=== PATIENT | female | born 1960 | race Caucasian/White ===

== ENCOUNTER 2021-02-25 09:53 | Emergency (ER) | payer BC, SELFPAY ==
--- NOTE | ~2021-02-25 | XR_ITS ---
EXAMINATION: XR RIBS, BILATERAL CLINICAL INFORMATION: Chest/rib pain. COMPARISON: None. TECHNIQUE: 3 views of the bilateral ribs were obtained. FINDINGS: Lungs are clear. No consolidation, pneumothorax, or pleural effusion. The cardiomediastinal silhouette and pulmonary vasculature are normal. Osseous structures are unremarkable. Ribs are intact. No fractures are identified. XR/XR ribs BI min 4V w CXR1V IMPRESSION: No acute cardiopulmonary findings. No evidence of acutely displaced rib fractures.
--- NOTE | ~2021-02-25 | XR_ITS ---
EXAMINATION: XR PELVIS CLINICAL INFORMATION: Pain over the right hip. COMPARISON: None. TECHNIQUE: AP view of the pelvis. FINDINGS: No acute fractures or malalignment. The femoral heads are well-seated in their respective acetabula. There are mild degenerative changes in both hips, sacroiliac joints and imaged lower lumbar spine. Anastomotic sutures are identified in the pelvis. No unexpected radiopaque foreign bodies. XR/XR pelvis 1-2V IMPRESSION: No acute fractures or malalignment.
[2021-02-25 11:23] VITALS: BP 137/63; PULSE 74; RESP 18; TEMP 36.7; O2SAT 98; BMI 22.3
--- NOTE | 2021-02-25 13:20 | ED_ITS ---
HPI - Fall General Chief Complaint: Fall Stated Complaint: fell down stairs R hip pain Shoulder pain Time Seen by Provider: 02/25/21 13:19 Source: patient Mode of arrival: ambulatory Limitations: no limitations History of Present Illness HPI Narrative: This is a 60-year-old female known medical history presenting to the emergency department with lower back pain status post fall and hitting her lower back on the steps she reports pain to lower back. She states that this happened just prior to her arrival, she was walking her dog going down the stairs, dog pulled her, she fell down 4 stairs and hit her back.She tells me is diffuse pain not just in 1 location. She tells me she has no previous back surgeries. She paresthesias, numbness , tingling, urinary/ bowel incontinence, weakness. Patient is not an IV drug user. When she fell she did not hit her head, did not lose consciousness. She is not on blood thinner MD complaint: fall Onset (ago): hour(s) (1) Fall from: standing Fall witnessed: no Place fall occurred: home Loss of consciousness: none Prolonged down time: no Symptoms prior to fall: none Context: tripped/slipped Location of injury: back Severity: moderate Severity scale (1-10): 6 Quality: throbbing Associated symptoms (after fall): denies Related Data Previous Rx's Medication Instructions Recorded cyclobenzaprine 10 mg tablet 10 mg PO BEDTIME PRN #7 tab 02/25/21 lidocaine 5 % topical patch 1 patch TOPICAL DAILY PRN #15 ea 02/25/21 Allergies Allergy/AdvReac Type Severity Reaction Status Date / Time codeine [CODEINE] Allergy Unknown HIVES Unverified 11/08/19 19:03 nitrofurantoin Allergy Unknown HIVES,SORES Unverified 11/08/19 19:03 [From MACRODANTIN] IN MOUTH prochlorperazine Allergy Unknown TONGUE Unverified 11/08/19 19:03 [From COMPAZINE] SWELLING Review of Systems Review of Systems: Constitutional : No Weight loss, No Fever, No Chills, No Fatigue, No Malaise ENT/Mouth : No sore throat, No Rhinorrhea Eyes: No Eye Pain, No Swelling, No Redness Cardiovascular : No Chest Pain, No SOB, No Dyspnea on Exertion, No Orthopnea, No Edema, No Palpitations Respiratory : No Cough, No Sputum, No Wheezing Gastrointestinal : No Nausea, No Vomiting, No Diarrhea, No Constipation, No abdominal Pain, No Hematochezia, No Melena Genitourinary : No Dysuria, No Urinary Frequency, No Hematuria, Musculoskeletal : No joint pain, No Myalgias, No Joint Swelling, + back pain Skin : No Skin Lesions, No rash Neuro : No Weakness, No Numbness, No Dizziness, No Headache All other systems reviewed and are negative Yes all other systems are reviewed and are negative [facility] Past Medical History Attestation statement: The following information was validated with the patient. Source: old records reviewed and nursing notes reviewed Medical History No known health problems Social History Social History Alcohol intake: current Alcohol intake frequency: a few times a week Smoked in Last 30 Days: No Use of substances other than those prescribed or required for medical reasons: No Advance Directives: No Physical Exam Vital Signs: Vital Signs: Last Vital Signs Temp 98.0 F 02/25/21 11:23 Pulse 61 02/25/21 14:41 Resp 16 02/25/21 14:41 BP 128/74 02/25/21 14:41 Pulse Ox 99 02/25/21 14:41 BMI result Body Mass Index 22.3 VSS Appearance: Alert.? Oriented X3.? No acute distress.? Head: Normocephalic, atraumatic, no step-offs or deformities Eyes: Pupils equal, round and reactive to light.? ENT: Pharynx normal.? Neck: Normal inspection.? Neck supple.? CVS: Normal heart rate and rhythm.? Pulses normal.? Respiratory: No respiratory distress.? Breath sounds normal.? Abdomen: Soft and nontender.? Skin: Skin warm and dry.? Normal skin color.? Normal skin turgor.? Extremities: No lower extremity edema.? No calf ttp. 5/5 strength to bilateral upper and lower extremities Back: No midline tenderness, no C-spine tenderness, full range of motion, no CVA tenderness bilaterally + paraspinous tenderness to lumbar region on palpation. Neuro: Oriented X 3.? No motor deficit.? No sensory deficit. Course Reevaluation(s) Reevaluation #1: X-ray of ribs, chest and pelvis within normal limits. No acute fractures or dislocations noted. Patient reports significant improvement after Toradol. Able to ambulate. No sensory or motor impairments. No saddle paresthesias. Neuro exam nonfocal. At this time I feel comfortable with discharge home with PCP follow-up. I advised patient to follow-up with her PCP, and mention to them that she had x-rays done here in the emergency department, in case she needs an MRI. patient's history and physical examination not consistent with cauda equina or epidural abscess Time: 16:19 MDM - Fall MDM Narrative Medical decision making narrative: 1352 60 yo F no pmhx w/ lower back pain status post fall and hitting her lower back on the steps. No LOC, no TAPIA, no nekc pain or vision changes Upon physical examination there is paraspinous tenderness to lumbar region on palpation. Plan Xray, pain meds Medical Records Attestation: I reviewed the patient's medical records. Lab Data Attestation: I reviewed the patient's lab results. Imaging Data x-ray of pelvis.: Attestation: I personally reviewed and interpreted this imaging study as follows: Radiologist's impression: FINDINGS: No acute fractures or malalignment. The femoral heads are well-seated in their respective acetabula. There are mild degenerative changes in both hips, sacroiliac joints and imaged lower lumbar spine. Anastomotic sutures are identified in the pelvis. No unexpected radiopaque foreign bodies.? XR/XR pelvis 1-2V IMPRESSION: No acute fractures or malalignment. X-ray of ribs with chest: Attestation: I personally reviewed and interpreted this imaging study as follows: Radiologist's impression: FINDINGS: Lungs are clear. No consolidation, pneumothorax, or pleural effusion. The cardiomediastinal silhouette and pulmonary vasculature are normal. Osseous structures are unremarkable. Ribs are intact. No fractures are identified. XR/XR ribs BI min 4V w CXR1V IMPRESSION: No acute cardiopulmonary findings. No evidence of acutely displaced rib fractures. Critical Care Time Critical Care Time Critical Care Time: No Discharge Plan Discharge Clinical Impression: Fall due to ice or snow, Back pain Patient Disposition: Home, Self-Care Instructions: Acute Low Back Pain (ED), Back Pain (ED) Additional Instructions: Take your medications as prescribed. If you were prescribed antibiotics today, it is important that you take your medication to their entirety, do not skip any doses, do not finish them early. Follow-up with your primary care provider this week. Take ibuprofen every 6 hours, Tylenol every 4 as needed for pain. Return to the emergency department with new or worsening symptoms. In case of emergency call 911 Prescriptions: New cyclobenzaprine 10 mg tablet 10 mg PO BEDTIME PRN (Reason: muscle spasm) Qty: 7 RF: 0 lidocaine 5 % adhesive patch,medicated 1 patch topical DAILY PRN (Reason: pain) Qty: 15 RF: 0 Referrals: Physician,Unknown J [Primary Care Provider] - 2 days Stand Alone Forms: Work/School Release
[2021-02-25 13:25] VITALS: BP 149/82; PULSE 74; RESP 18; O2SAT 98
[2021-02-25] MEDS: Ketorolac Tromethamine 30 MG/ML VIAL IM (14:24)
[2021-02-25 14:41] VITALS: BP 128/74; PULSE 61; RESP 16; O2SAT 99
== END 2021-02-25 16:25 | disposition home or self-care (01) ==
PROVIDERS: Emergency Provider Emergency Medicine
DX: M54.50 Low back pain, unspecified (principal); Z91.81 History of falling
CPT/HCPCS: 71111; 72170; 96372; 99284; J1885